=== PATIENT | male | born 1975 | race Caucasian/White ===

== ENCOUNTER 2018-04-27 14:15 | Observation (INO) | END 2018-04-28 17:45 | disposition home or self-care (01) ==

== ENCOUNTER 2018-06-10 06:31 | Emergency (ER) | END 2018-06-10 07:26 | disposition home or self-care (01) ==

== ENCOUNTER 2018-09-24 11:08 | Emergency (ER) | payer MEDICAID ==
[~2018-09-24] VITALS: Ht 167.6 cm; Wt 129.0 kg
[~2018-09-24 11:08] MED LIST: ACET500C5 PO; AMOX1TAB10 PO; ASPI-817 PO; ATOR20TA38 PO; INSU100C SQ; LANT3I SC; LISI-313 PO; METO25TA4 PO; MONT10TA24 PO
[2018-09-24 11:13] VITALS: Ht 167.6 cm; Wt 129.0 kg
[2018-09-24] MEDS ORDERED: ONDANSETRON 4 MG INJ IV STA (11:20)
[2018-09-24] MEDS ORDERED: SOD CHLORIDE 0.9% 1,000 ML IV STA (11:20)
[2018-09-24] MEDS ORDERED: KETOROLAC 15 MG INJ IV STA (11:20)
[2018-09-24] MEDS ORDERED: NOVO3I SC (12:36)
[2018-09-24] MEDS ORDERED: INSU100I33 SC (12:37)
[2018-09-24] MEDS ORDERED: LISI-313 PO (12:38)
[2018-09-24] MEDS ORDERED: ASPI-903 PO (12:38)
[2018-09-24] MEDS ORDERED: IBUP-1542 PO (13:03)
--- NOTE | 2018-09-24 13:03 | ERD ---
ER Documentation Chief Complaint Chief Complaint Complains of left sided abdominal pain HPI 43-year-old man complains of right flank and groin pain since this morning, pain is been intermittent and nonexertional. He states the flank pain radiates to the groin but denies hematuria or dysuria. Patient was inaccurately triaged as having left-sided pain. Patient denies blood per rectum or melena, no fevers or chills, no chest pain or shortness of breath. ROS All systems reviewed and are negative except as per history of present illness. Medications Home Meds Active Scripts Atorvastatin Calcium* (Atorvastatin Calcium*) 20 Mg Tablet, 20 MG PO QHS, #30 TAB Prov:CAMERON ARAUJO 04/28/18 Metoprolol Tartrate* (Lopressor*) 25 Mg Tablet, 25 MG PO BID, #60 TAB Prov:CAMERON ARAUJO 04/28/18 Reported Medications Lisinopril* (Lisinopril*) 5 Mg Tablet, 5 MG PO DAILY, #30 TAB 09/24/18 Aspirin* (Aspirin* Chew) 81 Mg Tab.chew, 81 MG PO DAILY, TAB.CHEW 09/24/18 Insulin Glargine,Hum.rec.anlog (Basaglar Kwikpen U-100) 100 Unit/1 Ml Insuln.pen, 20 UNIT SC QHS, EA 09/24/18 Insulin Aspart* (Novolog Insulin Pen*) 100 Unit/Ml Soln, 8 UNIT SC WITH MEALS, EA 09/24/18 Discontinued Reported Medications Montelukast Sodium* (Montelukast Sodium*) 10 Mg Tablet, 10 MG PO QHS, #30 TAB 04/27/18 Discontinued Scripts Acetaminophen* (Tylophen*) 500 Mg Capsule, 1 CAP PO Q6H PRN for PAIN AND OR ELEVATED TEMP, #20 CAP Prov:VIKTORIA CHAIDEZ [employer] 06/10/18 Amoxicillin/Potassium Clav (Amox-Clav 875-125 mg Tablet) 875-125 mg Tab, 1 TAB PO BID for 7 Days, #14 TAB Prov:VIKTORIA CHAIDEZ [employer] 06/10/18 Insulin Lispro (Humalog) 100 Unit/1 Ml Cartridge, 8 UNIT SQ AC MEALS, #2 VIAL Prov:CAMERON ARAUJO 04/30/18 Insulin Glargine* (Lantus*) 100 Unit/Ml Soln, 24 UNIT SC QHS, #2 VIAL Prov:CAMERON ARAUJO 04/30/18 Aspirin* (Aspirin* EC) 81 Mg Tablet.dr, 81 MG PO DAILY, #30 TAB Prov:CAMERON ARAUJO 04/28/18 Lisinopril* (Lisinopril*) 5 Mg Tablet, 5 MG PO DAILY, #30 TAB Prov:CAMERON ARAUJO 04/28/18 Allergies Allergies: Coded Allergies: No Known Allergy (Unverified , 06/10/18) PMhx/Soc Hypertension, diabetes mellitus History of Surgery: No Anesthesia Reaction: No Hx Neurological Disorder: No Hx Respiratory Disorders: Yes (ASTHMA) Hx Cardiac Disorders: Yes (HYPERLIPIDEMIA) Hx Psychiatric Problems: No Hx Miscellaneous Medical Probl: Yes (DM) Hx Alcohol Use: Yes (OCCASIONAL) Hx Substance Use: No Hx Tobacco Use: No Smoking Status: Never smoker Physical Exam Vitals Vital Signs Date Temp Pulse Resp B/P (MAP) Pulse Ox O2 O2 Flow FiO2 Time Delivery Rate 09/24/18 98.3 77 20 144/87 98 11:13 (106) Physical Exam GENERAL: Well-developed, well-nourished, well-hydrated, in no apparent distress, looks nontoxic in appearance HEENT: Moist mucous membranes, pink conjunctiva, no cervical spine tenderness or step-off deformities, no goiter, no jaundice or icterus, extraocular movements intact without pain. No submandibular induration, and no pharyngeal erythema NEURO: Alert and oriented 3, cranial nerves II through XII intact bilaterally, pupils equal round reactive to light, no focal deficits or facial asymmetry, sensation intact distally Strength 5/5 in upper and lower extremities bilaterally CARDIAC: Regular rate and rhythm, no murmurs rubs or gallops LUNGS: Clear bilaterally no wheezing crackles or stridor ABDOMEN: Soft nontender, no guarding, no rigidity, no rebound, no psoas sign no obturator sign. Normoactive bowel sounds SKIN: Warm and dry to touch, no abrasions, contusions, or hematomas, no lacerations, no ecchymosis, no target lesions, and without ulcers EXTREMITIES: No clubbing cyanosis or edema, calves are bilaterally symmetrical, no Homans sign, no popliteal cord sign. Distal pulses equal and bilateral PSYCH: Normal affect without agitation or irritability Result Diagram: 09/24/18 1124 09/24/18 1124 Results 24 hrs Laboratory Tests Test 09/24/18 11:24 White Blood Count 6.3 10^3/ul Red Blood Count 6.05 10^6/ul Hemoglobin 18.2 g/dl Hematocrit 49.9 % Mean Corpuscular Volume 82.5 fl Mean Corpuscular Hemoglobin 30.1 pg Mean Corpuscular Hemoglobin Concent 36.5 g/dl Red Cell Distribution Width 12.5 % Platelet Count 184 10^3/UL Mean Platelet Volume 9.1 fl Immature Granulocytes % 1.600 % Neutrophils % 56.9 % Lymphocytes % 30.5 % Monocytes % 7.4 % Eosinophils % 3.0 % Basophils % 0.6 % Nucleated Red Blood Cells % 0.0 /100WBC Immature Granulocytes # 0.100 10^3/ul Neutrophils # 3.6 10^3/ul Lymphocytes # 1.9 10^3/ul Monocytes # 0.5 10^3/ul Eosinophils # 0.2 10^3/ul Basophils # 0.0 10^3/ul Nucleated Red Blood Cells # 0.0 10^3/ul Urine Color YELLOW Urine Clarity CLEAR Urine pH 5.0 Urine Specific [place] 1.022 Urine Ketones NEGATIVE mg/dL Urine Nitrite NEGATIVE mg/dL Urine Bilirubin NEGATIVE mg/dL Urine Urobilinogen NEGATIVE mg/dL Urine Leukocyte Esterase NEGATIVE Audrey/ul Urine Hemoglobin NEGATIVE mg/dL Urine Glucose 3+ mg/dL Urine Total Protein NEGATIVE mg/dl Sodium Level 138 mmol/L Potassium Level 4.1 mmol/L Chloride Level 102 mmol/L Carbon Dioxide Level 24 mmol/L Anion Gap 12 Blood Urea Nitrogen 12 mg/dl Creatinine 0.58 mg/dl Est Glomerular Filtrat Rate mL/min > 60 mL/min Glucose Level 323 mg/dl Calcium Level 10.2 mg/dl Total Bilirubin 0.8 mg/dl Direct Bilirubin 0.00 mg/dl Indirect Bilirubin 0.8 mg/dl Aspartate Amino Transf (AST/SGOT) 45 IU/L Alanine Aminotransferase (ALT/SGPT) 57 IU/L Alkaline Phosphatase 86 IU/L Total Protein 7.9 g/dl Albumin 4.9 g/dl Globulin 3.00 g/dl Albumin/Globulin Ratio 1.63 Lipase 77 U/L Current Medications Medications Dose Sig/Shannon Start Time Status Last (Trade) Ordered Route PRN Stop Time Admin Dose Reason Admin Sodium 1,000 ml @ Q1H STAT 09/24/18 DC 09/24/18 Chloride 1,000 mls/hr IV 11:20 09/24/18 11:35 12:19 Ondansetron 4 mg ONCE STAT 09/24/18 DC 09/24/18 HCl (Zofran IV 11:20 09/24/18 11:36 Inj) 11:21 Ketorolac 15 mg ONCE STAT 09/24/18 DC 09/24/18 Tromethamine IV 11:20 09/24/18 11:37 (Toradol) 11:21 Procedures/MDM IV line was established patient was placed on rn cardiac rehab rhythm strip reve aled a sinus rhythm at about 80 bpm with upright P and T waves. Patient was afebrile I administered 1 L normal saline IV, Toradol 15 mg IV, Zofran 4 mg IV CBC and electrolytes were normal, liver function tests normal, coagulation profile normal, urine analysis negative for infection. CT scan of the abdomen and pelvis was performed,IMPRESSION: 1. No evidence of acute intra-abdominal/pelvic inflammatory process. No evidence of bowel obstruction. The appendix is within normal limits. There is mild colonic diverticulosis. 2. No gross renal/ureteric calculi. No evidence of obstructive uropathy. 3. Fatty liver. 4. No evidence of free fluid or free air. No gross focal fluid collections. Patient's vital signs remain normal and repeat abdominal examination remains benign, he appears well and is tolerating p.o. He will be discharged to follow- up with PMD for continued outpatient management. Differential diagnoses considered, included but not limited to acute coronary syndrome, pulmonary embolism, aortic dissection, abdominal aortic aneurysm, sepsis, stroke, meningitis, encephalitis, pneumonia, appendicitis, cholecystitis, bowel obstruction, pyelonephritis, nephrolithiasis, cystitis, as well as metabolic, hematologic, and electrolyte abnormalities. As well as abscess, cellulitis, fractures, and dislocations. Patient feels much better at this time, and vital signs are normal, symptoms have improved. I did give strict instructions to return to the ED if symptoms continue or worsen, patient will otherwise follow-up with primary care physician. Patient understood instructions and agreed to plan. Disclaimer: Inadvertent spelling and grammatical errors are likely due to EHR/ dictation software use and do not reflect on the overall quality of patient care. Also, please note that the electronic time recorded on this note does not necessarily reflect the actual time of the patient encounter. Departure Diagnosis: Primary Impression: Abdominal pain Abdominal location: right lower quadrant Qualified Codes: R10.31 - Right lower quadrant pain Condition: MOLLY Coronel MD Sep 24, 2018 13:03
[2018-09-24 13:40] VITALS: BP 121/69; PULSE 65; RESP 19
== END 2018-09-24 13:42 | disposition home or self-care (01) ==
LOC: E/R 11:08
DX: R10.31 Right lower quadrant pain (principal); I10 Essential (primary) hypertension; E11.9 Type 2 diabetes mellitus without complications; J45.909 Unspecified asthma, uncomplicated; Z79.4 Long term (current) use of insulin; Z79.82 Long term (current) use of aspirin
CPT/HCPCS: 36415; 74176; 80053; 81003; 83690; 85025; 96361; 96374; 96375; J1885; J2405; J7030; Z7502; Z7610